=== PATIENT | female | born 1995 | race Caucasian/White ===

== ENCOUNTER → 2021-02-20 | Outpatient (CLI) | payer OTHER, SELFPAY | END | disposition home or self-care (01) | PROVIDERS: Referring Provider Physician Assistant Surgical; Visit Provider Physician Assistant Surgical | DX: Z20.822 Contact with and (suspected) exposure to COVID-19 (principal) | CPT/HCPCS: 87635; U0005; U0003 ==

== ENCOUNTER → 2024-04-12 | Outpatient (CLI) | payer OTHER, SELFPAY ==
--- OUTSIDE RECORDS SUMMARY | 2024-04-12 13:36 | XMS RPT_ITS | CCD ---
Author Organization [facility] Results Test Name Value Interpretation Reference Range Facility Coding Summary.on 03-21-2021 Coding Summary. CD:[id number] G h0bWw+PGhlYWQ+TN6NHJS iD30bxWCklL7SO3uDGJ0A DSJNHUAOBL5CUL0bwGC9C WyzA0SmswIu ZmxyhFQsSC99COt6QRT8q SfoXTglnQ1tqJXhB5c7Ho IzQM62lX65ZOpaMDZcPgM 3LjZpbjsgbWFy H5hhUyRnzWFzKac+PHRhY mxlIHdpZHRoPScxMDAlJy DtsBxlKR6pFg4yZORoEMA vbGxhcHNlOiBj g4tvECElTPofFO2fmJpyL 7XkaHA5FFZpx6t1Gb58zM I+FHMjGCK6hSyiJLlon97 0FaIzm3evCXF9 rJUlRHlnOBN5Y84uj1A0B QEoAFBmOWZ6bGO6iT1haY jbuzokP4VfqHAmYlT9LGV 9sNUndA7csWmf ayxfiZ8zXfr+Z82KPF6FF PSZAG9LKag5Y9XyDtzexR I+DV51FKUySI01rPIdlIK dh0wjpSt7FeSu ESIpRAI2uUkuZTkoo2RaR BMqO78zhULgj0T5TXWknM qpzRAuUzNjcBN6lG6eDWu duiaug0oxwgth Vxvub0buuy58tV56K47yH WshCDTvYNC5UZRcJJHoaF dwul3zxL4jTc3+MZoji1y tw0tujPg5IoIj JIBbhaTjtGodVBA8y2VdS w73L0XugUcao8VfVty2mn 35uVOfa6Y0xQM9FGrtBCE whY2lBFtzWvD6 PWQeCpEbmS35iVZfUAclU e0uoHgkmAkzVU7mAZIfps irQMNgcD6kNGNnsQGgtCh fVV3hUIOgztnt n479RgDiEAF2ZETwlTDdJ 7KtmB8kPbYxEXBgVGEoD9 YirYTdDRqsB544KEikVcR 4ZJPpsgRaT5Uv AHDehCfbInV6i4Q2Sx9Zd 4XexdlyMKD5WJaoBAVsNc U1GuAaEeH3F1JqYnk4KFF ooOktCI0mH9Xj BCCiximlroxpgNM2SSCtT LCszU91zSIdROtzLa9bw5 I9d524RQWoXFKquW39Go3 udDogMTBwdCBU iS6asicis6kggmycHaAqJ LFsJKg1XTx2DZRsbKtfXp EpXJT4ZmH5YKR6eZNjuA9 gfNolkecdfO6m Oyc+P64baS0fVPY2NDB8y eqdMWFftbWtVW49UV17G9 RyPjwvdGFibGU+PGRpdiB odSdmBD3fHqHa r2iyj7VvTNgxS7FkCELjR TchOek7QDNwFIL3rES4xM 1rLBNpVQvrf8T9aXE8H6R vjfMbaj1wk9mv HMYvRCaqL35cdNMhg2R3R SPhsUP2DGMnkUhrIjLypM 93Oyc+OPYodBfrb0ZlBie ag4lvg7iegRo1 KkRtSFJpusFpwJcaQRO0d 4IgUi99L08eEJfvUPAzOG RjRZDfDESnwBjktg2xfO3 wIi8+PGNvbCB3 nAW5vJ8aTULjNnR5SOfxK 890HaGrsRZiYrocs3zck5 mqhNq3YqOsYFUqgiPrdJn sSFZ9a6HaVh16 T50kOFmsHEJdESSeUFWcK VYvdKrtrw9ptW8kEe7+PC 5ik3bslm90pX25hVW+PHR xEQG0lImjNYtn AXMgwS7uXJiuBtJ3INElK dXwpL90cARvMHdbWl3rpN zyjVqfAK5bJBXshhwfg72 2IeBrf2aqOCNl vUWyDCnlONU1N05sr3K6X JJpVDEgLKD7jUH1mU5iqJ lnbjogbGVmdDsgdmVydGl lNKxzCPawY082 IHRvcDsnPlBhdGllbnQgT fXdTKw6L4CbFtk5AFRhrJ itHX3xsPIxRHzaWv5zeZv lnWygFK7wHYQk cfbae348GePij5xbNHGkw EVlBFvgLNW4I49ks3H1AR BeKRXkYLT3gTK3bJ3goCy nbjogbGVmdDsg akFhwLneCFouXMcoI952A HRvcDsnPkJpcnRoIERhdG I4OF76EH77eIXwc0S3jXJ 0S1TyBVTfpmas dexyhWR8CZVePSLslA64H e1vpNhzIs4vLBHlCYI7WG ThlPCzY4OfjC7pMtXfLQJ vONRzO0NyjHSj LEgxS601ZCrmSyF6YTGch yNrZ8ZsAWEgsQihDjB4h0 H6Rc8CD4E2IG40HU12nHE jt9U3lFL4E8Lf BCWkwezdjbixcFD0CWGgN OBjsR84Dw5rfDrqJr3yYC KySPP3EKTrnIGsI2SjcI5 yOiAjMDAwMDAw Z1TcvALzZMwpB051SKzoR hA9TBKajoIjU1SiCYRejU pnLxR3r4X4Fd4DQNm3HW3 6JZ92rHPvu2Y5 zJF3K8EmXQQpbsepvsard IM4VGWlRFHwwS54Mb0uwJ meIy3tQAPiYTZ2IDPagYW tJ1NbeF4kIsZw EJJvCTTbO8NzeTYvQHyfX 137WKerJuD7YRCvddCzF8 BqNHYilOiwSjW5h5L1Vv0 FKFEqRZ00GDJ7 jRG6UA50DI32B8XjCmihy GFibGU+PHRhYmxlIHdpZH RoPScxMDAlJyBzdHlsZT0 oMf2fVJMdDBJa sPcflKKuUrZun2dzQXVdK HfoRT3neJkhX8JhkOH6VL Jlg8j1Er36F43nF2CqfLU +FUKpaEF0aUT1 eE7tRrNxXkZ1EOtaM882M gSujUVqSlfbx9fop3ceaF d5LvV8MLBjskLrfDxpNWS 8s2XxYn91B61b IHdpZHRoPSIxNSUiIHZhb Aaxmu5tsO5kEf8+PGNvbC D1kND4wL9wOaRmEdC7ETo zQ824FsWmiMRr Ulmis9std8hsdQy1EmKqW SEnmaSusKpdTIL2j4BcCe 61Y2QwlAqqb9EiFku4an8 4mOIux3Y3aIE3 B5AjVAHnvdminDYdgKzrY G4bHKHuhcylZMUymT5iSF NuP8j2XrNuZjQ2LAauX1R bnzJ0EPJraZCj EXqzUVW5M27zt1G9XLWkZ IOyCFS6fCA6rZ2gzVvfnj ogbGVmdDsgdmVydGljYWw mHWezM875JDKe qXreKRZytV0eCHZnoOVwp QyuMJ9xJOMffzoxTf9CLK fkPQxTUo3UZSCZCV72ZK6 8rETnj7G7nBM6 K8ElWBPtycvcazoaiKK7X KTkAKXymO67jNDwFIfiMi 5xu2C5y918PYAzKAQeqD4 0Mc9shHjcAJNw lGBMnZ8ogesej2ylguotW bUaIGDdZNa5QMp2OUWkgZ cuFjFqHKS0VmP2SUC9iRZ zfD7chZuwovqj jI9eSin+WLYrZMelNKm6V DwvdGQ+VRPzUCT5vUskXF qlKTKekE7yXBVcB3r7IuB hHiJ7JUkuP9Os OIUwqzggXf10nM4aClFhD rY9QDsmE0ZmeaG2TDBuoJ WgZHxeGHH2Q03xi7W4PRK vHANmWOA6fCD9 tG0ukZaaqgcurAMnhHhme eXvkDxlKDaeTHrsJ139EZ RvcDsnPjIzIFllYXJzPC9 5PG16jWVuk0L2 pER0A7EnJBQnplfwhtzbu ZH7LOWdOSLiaC55yEStOR wwVj1qo7A7n530NXDkHMP tiL37Tr6rfSqo FJXdaHZHhQ5tnjefr7sah qqzSmEpONBbMKk4YAw5LU HcvOvxNtXkTXJ7KqN4PQY 8cMChbS3juEts rwmjcW7hPkr+RmVtYWxlP I37JD83fNVkl3B9yPQ3B9 DiWLPzepsfsuvukXZ5CGQ aMBPypH91bGBu GSwgNl9ja1J1l802DPOjM KLbuP39Fh6lmBefVWSezG GWmS0qdwcbh6rzzkwsDwG mTERwAEm9KEv4 AALleYhlIxHhIUW7FtR1U ZF0dAJqdN1wqHsidbvybP 9wOyc+DANeFIVbi3Jvs6O mEE42UW86F2If PjwvdGFibGU+PHRhYmxlI HdpZHRoPScxMDAlJyBzdH cjWE8tZr9xRDLdSFFwaWd qvNFxUvUlq8qx MAXeSPsiVY6gaAxrH5Twk ZU4CARab1y8Ly58A82tT3 JvdXA+TLFdlCJ3zQU7jY6 bKtVeQyE6EDfg M908IbJioBXpBatmo7hed 0pjoWb2GgArSJJumdHjaN dkGLC3r4VtZw34M59eMOp pZHRoPSIyMCUi PKHiyOiihb3tyD9rHu2+P LYeuDW0hBE8hO1pLeHgEd H3KKtbV244NtLzxWTlGsx rS55zA7XtaVW+ TVZmAsi9GOEzjPbdMD0ra HNqLMhpYs2rKHB9KbRqPf EiZYwcF3BpFGKhvioibeo yeUQ3UMWjHNOw rD14Dc8fdRziSz6cZQTkO BZ0MFYwmCMhG1FtcN8sIm RoXAPdJMWpI2PxmRGbRDl hI845UEcfMsM3 RQLioqBeR8BqCFKklRxkE sS5o3X6Ml7DvUqxpNTdXE 1yPpRsUWn8C4KhGcl7XVF esYieNK1fcJPv DDgoYn6zmBhszVmmPV5wK OHwajlkv478QpNnd1neFC MbvNExIImwVEK6G29gv2G 1VSUsGMFpEKN4 uVY8nW2deFvyxvmjgPBsc DsgdmVydGljYWwtYWxpZ2 54ACNytJvrCbKTGyp2E7S iNus8XMRinIgi HR4paHCtQOgsOb8hzEdum FfsGW7wXQAvnfffc601Xd Kup2wjTXGbtSVmGDnpBUZ 7Y04pl0Q8AWTz DBHhUYB7mKT8dA3kfSchl jogbGVmdDsgdmVydGljYW atUDuoS703KVXyfSfnXn0 WIwb9Z8HwQew4 CDUcfEuuPI3uiMIkPIeeD l7nwWodcDpyBF8nVETohk imt866CoCqi4roENJfwIB tWOuxDXL4T51z w0A2GYGsNNLhTIQ4wXI0a V4skHravymggSMbbPlehk ZglTmiFMeyJWepR186TVO vcDsnPlBheWVy OjwvdGQ+DE79et89K5UsJ peqCpp8UNLvPAF3iFE6wR 5rHEUpIShha4G0lJB3L5P zoeLlch9pn2dt YXBz (more content not included)... Normal [facility] PAP [id number] 03-19-2021 Cytology report Cyto stain Doc (Cvx/Vag) Note Invalid Interpretation Code [facility] Comment on above: Result Comment: TEST S RESULT FLAG UNITS REF RANGE LAB Clinician Provided Cytology Information Source.............[employer] No. of containers..01 ThinPrep Vial DIAGNOSIS: 01 NEGATIVE FOR INTRAEPITHELIAL LESION OR MALIGNANCY. Specimen adequacy: 01 Satisfactory for evaluation. Endocervical and/or squamous metaplastic cells (endocervical component) are present. Performed by: Gena Welch Account Specialist (ASCP) . 01 Note: Note 01 The Pap smear is a screening test designed to aid in the detection of premalignant and malignant conditions of the uterine cervix. It is not a diagnostic procedure and should not be used as the sole means of detecting cervical cancer. Both false-positive and false-negative reports do occur. Test Methodology: Note 01 This liquid based ThinPrep(R) pap test was screened with the use of an image guided system. . 01 The HPV DNA reflex criteria were not met with this specimen result therefore, no HPV testing was performed. FLAG LEGEND: L-Low Normal,H-High Normal,LL-Alert Low,HH-Alert High <-Panic Low,>-Panic High,A-Abnormal,AA-Critical Abnormal Performed at: 01 [facility] [address] [id number] Juliane Valenzuela MD, Performed at: [facility] [address] [id number] MD Nicolas Cardozo Performed By: #### 2 [id number] #### [facility] [address] [place] [address] PAP [id number] 03-14-2021 Collection Technique BRUSH-SPATULA Normal [facility] Comment on above: Performed By: #### 2 [id number] #### [facility] [address] [place] [address] Gynecological Body Site ENDOCERVIX Normal [facility] Comment on above: Performed By: #### 2 [id number] #### [facility] [address] [place] [address] Previous Cytology Negative Normal [facility] Comment on above: Performed By: #### 2 [id number] #### [facility] [address] [place] [address] Previous Treatment NONE Normal [facility] Comment on above: Performed By: #### 2 [id number] #### [facility] [address] [id number] Physician Orderon 03-14-2021 Physician Order [id number]# 1.00CD:127 Normal [facility] Summary Purpose Family History No Family History Records Found Advance Directives No Advanced Directives Records Found Additional Source Comments INFORMATION SOURCE (unrecogn ized section and content) DATE CREATED AUTHOR 03/22/2021 [facility] FOR RECORDS PERTAINING TO PATIENTS WHO ARE OR HAVE BEEN ENROLLED IN A CHEMICAL DEPENDENCY/SUBSTANCEABUSE PROGRAM, SOME INFORMATION MAY BE OMITTED. This clinical summary was aggregated from multiple sources. Caution should be exercised in using it in the provision of clinical care. This summary normalizes information from multiple sources, and as a consequence, information in this document may materially change the coding, format and clinical context of patient data. In addition, data may be omitted in some cases. CLINICAL DECISIONS SHOULD BE BASED ON THE PRIMARY CLINICAL RECORDS. [facility]. provides no warranty or guarantee of the accuracy or completeness of information in this document.
[2024-04-17 16:47] LABS: HPV Reflexed? NOT INDICATED
== END | disposition home or self-care (01) ==
LOC: LABSPEC 11:27
PROVIDERS: Referring Provider Obstetrics & Gynecology; Visit Provider Obstetrics & Gynecology
DX: Z12.4 Encounter for screening for malignant neoplasm of cervix (principal)
CPT/HCPCS: 88175; G0145

== ENCOUNTER → 2024-11-22 | Outpatient (CLI) | payer OTHER, SELFPAY ==
[2024-11-22 17:56] LABS: Absolute Neutrophil Count 4.7 X10^3/uL (2.0-7.7); Basophil# 0.06 X10^3/uL; Basophil% 0.7 % (0-1); Eosinophil# 0.26 X10^3/uL; Eosinophils% 3.1 % (0-5); Hematocrit 35.9 % (37-47); Hemoglobin 12.6 g/dL (12.0-15.0); Lymphocyte % 31.4 % (19-41); Mean Corp Hgb Conc 35.1 g/dL (32-36); Mean Corpuscular Hgb 30.3 pg (27.0-32.0); Mean Corpuscular Volume 86.3 fL (81-99); Mean Platelet Vol. 9.5 fl (6.2-12.0); Monocyte# 0.69 X10^3/uL; Monocyte% 8.3 % (0-10); NRBC Flagged by Analyzer 0 % (0-5); Neutrophil # 4.65 X10^3/uL (2.7-7.7); Neutrophil % 56.3 % (47-70); Platelet Count 340 K/mm3 (150-450); RBC Distribution Width CV 11.9 % (11.6-14.6); RBC Distribution Width SD 37.7 fl (35.1-43.9); Red Blood Count 4.16 M/mm3 (4.2-5.4); White Blood Count 8.3 K/mm3 (4.4-11.0)
[2024-11-22 18:48] LABS: ALB/GLOB Ratio 1.6 RATIO (0.9-2.4); AST(SGOT) 22 U/L (<=31); Alanine Aminotransfer ALT/SGPT 10 U/L (<=34); Albumin, Serum 4.5 g/dL (3.5-5.0); Alkaline Phosphatase 63 U/L (35-104); Anion Gap 11 (5-15); BUN 12 mg/dL (4-19); Calcium,Total 9.5 mg/dL (7.6-11.0); Carbon Dioxide 24.4 mmol/L (21.0-32.0); Chloride 104 mmol/L (98-108); Creatinine, Serum 0.83 mg/dL (0.70-1.20); EST Glomerular Filtration Rate 99 (>60); Ferritin 73 ng/mL (22-378); Free T3 3.3 pg/mL (2.18-3.98); Globulin 2.8 g/dL (2.2-4.2); Glucose 88 mg/dL (70-99); Protein, Total 7.3 g/dL (5.9-8.4); Sodium Level 139 mmol/L (133-145); Total Bilirubin 0.43 mg/dL (0.00-1.30)
[2024-11-24 14:08] LABS: ANTINUCLEAR ANTIBODIES DIRECT Negative (Negative)
[2024-11-25 03:07] LABS: Thyroid Peroxidase AB < 9 IU/mL (0-34); Zinc, WHOLE BLOOD 557 ug/dL (440-860)
== END | disposition home or self-care (01) ==
LOC: MTLAB 16:32
PROVIDERS: Referring Provider Physician Assistant; Visit Provider Physician Assistant
DX: L65.9 Nonscarring hair loss, unspecified (principal); L21.8 Other seborrheic dermatitis; L67.8 Other hair color and hair shaft abnormalities
CPT/HCPCS: 36415; 80053; 82627; 82728; 84403; 84439; 84443; 84481; 84630; 85025; 86038; 86376; 82626